=== PATIENT | male | born 1995 | race African-American/Black ===

== ENCOUNTER 2018-07-29 17:40 | Emergency (ER) | payer BC ==
[~2018-07-29] VITALS: Ht 182.9 cm; Wt 102.1 kg
[2018-07-29 17:55] VITALS: BP 118/71
--- NOTE | 2018-07-29 18:10 | PHYS DOC ---
Past History Past Medical History: No Pertinent History Past Surgical History: No Surgical History Alcohol Use: None Drug Use: None Adult General Chief Complaint Chief Complaint: ANKLE PROBLEM HPI HPI 22-year-old male presents to the ED with left medial ankle pain. 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 He states that 2 weeks ago he had a tackle which rotated his body weight towards the lateral side of the ankle. He had pain on the medial side. 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 The patient is concerned because it still does not seem to be improving. He still cannot run and practice fully even with it wrapped. He states that the pain can radiate up the back of his leg to his knee. He has medial malleolus tenderness with inversion and plantarflexion. He tells me that initially had some ecchymosis but that has resolved. The swelling is minimal at this time. He denies ever injuring this ankle in the past. He's never had surgery on it. He denies any other injuries or complaints. Review of Systems Review of Systems Constitutional: Denies fever or chills [] Eyes: Denies change in visual acuity, redness, or eye pain [] HENT: Denies nasal congestion or sore throat [] Respiratory: Denies cough or shortness of breath [] Cardiovascular: No additional information not addressed in HPI [] GI: Denies abdominal pain, nausea, vomiting, bloody stools or diarrhea [] : Denies dysuria or hematuria [] Musculoskeletal: Left ankle pain[] Integument: Denies rash or skin lesions [] Neurologic: Denies headache, focal weakness or sensory changes [] Endocrine: Denies polyuria or polydipsia [] All other systems were reviewed and found to be within normal limits, except as documented in this note. Allergies Allergies Allergies Coded Allergies Type Severity Reaction Last Updated Verified No Known Drug Allergies 07/29/18 No Physical Exam Physical Exam Constitutional: Well developed, well nourished, no acute distress, non-toxic appearance. [] HENT: Normocephalic, atraumatic, bilateral external ears normal, oropharynx moist, no oral exudates, nose normal. [] Eyes: PERRLA, EOMI, conjunctiva normal, no discharge. [] Neck: Normal range of motion, no tenderness, supple, no stridor. [] Cardiovascular:Heart rate regular rhythm, no murmur [] Lungs & Thorax: Bilateral breath sounds clear to auscultation [] Abdomen: Bowel sounds normal, soft, no tenderness, no masses, no pulsatile masses. [] Skin: Warm, dry, no erythema, no rash. [] Back: No tenderness, no CVA tenderness. [] Extremities: Medial malleolus tenderness, especially with inversion and plantarflexion. Hard in feel to deltoid ligament as well as the lateral ligaments. Minimal swelling, no ecchymosis.[] Neurologic: Alert and oriented X 3, normal motor function, normal sensory function, no focal deficits noted. [] Psychologic: Affect normal, judgement normal, mood normal. [] Current Patient Data Vital Signs Vital Signs Date Time Temp Pulse Resp B/P (MAP) Pulse Ox O2 Delivery O2 Flow Rate FiO2 07/29/18 17:55 98.6 84 14 96 Room Air EKG EKG [] Radiology/Procedures Radiology/Procedures [] Impressions: Preliminary interpretation: The patient's left ankle x-ray are negative for acute fracture Course & Med Decision Making Course & Med Decision Making Pertinent Labs and Imaging studies reviewed. (See chart for details) The patient's x-rays are negative for fracture. This is still most likely to be a deltoid sprain or a deep bruise. He may need to back off of training completely to allow it to heal and/or consider physical therapy. [] Dragon Disclaimer Dragon Disclaimer This electronic medical record was generated, in whole or in part, using a voice recognition dictation system. Departure Departure: Referrals: PCP,NO (PCP) CELINE STORM DO Jul 29, 2018 18:10
--- NOTE | 2018-07-29 18:24 | RAD ---
LEFT ANKLE AP, LATERAL, OBLIQUE Clinical Indication: Left ankle pain and injury 2 weeks from football injury Comparison: None. Findings: There is no acute fracture or dislocation. Mineralization is normal. Joint spaces are maintained. The ankle mortise is intact. There is no ankle joint effusion. There is no radiographically apparent soft tissue swelling. IMPRESSION: No acute fracture. Electronically signed by: Avila Prakash MD (07/29/2018 6:21 PM) [facility]
== END 2018-07-29 18:35 | disposition home or self-care (01) ==
LOC: ER 17:40
DX: M25.572 Pain in left ankle and joints of left foot (principal); R22.42 Localized swelling, mass and lump, left lower limb; G89.11 Acute pain due to trauma; W03.XXXA Other fall on same level due to collision with another person, initial encounter; Y93.61 Activity, american tackle football; Y92.214 College as the place of occurrence of the external cause; Y99.8 Other external cause status
CPT/HCPCS: 73610; 99284